=== PATIENT | male | born 1950 | race Caucasian/White ===

== ENCOUNTER 2016-07-09 07:30 | Inpatient (IN) | payer BC, MEDICARE ==
--- NOTE | 2016-07-02 14:00 | NUR ---
JOINT REPLACEMENT PREOP CLASS PATIENT ATTENDED JOINT REPLACEMENT PREOP CLASS. CASE MANAGEMENT CONTACT INFORMATION PROVIDED. EDUCATION WAS PROVIDED REGARDING WHAT TO EXPECT BEFORE, DURING AND AFTER SURGERY. INCLUDING: OVERVIEW OF ANATOMY AND PHYSIOLOGY HOSPITAL TREATMENT SCHEDULE THERAPY DEMONSTRATION CASE MANAGEMENT RESPONSIBILITIES DISCHARGE PLANNING EQUIPMENT NEEDS JOINT REPLACEMENT WORKBOOK ANTI-COAGULATION SURGERY STRONG NUTRITIONAL PROTOCOL DISCHARGE INSTRUCTIONS [facility] PATIENT PORTAL, WITH INSTRUCTIONS CJR AND PREOP SURVERY PREOP BATHING- CHG GIVEN ALL PATIENT'S QUESTIONS ANSWERED TO THEIR SATISFACTION. PATIENTS AND COACHES ENCOURAGED TO CALL WITH ANY ADDITIONAL QUESTIONS OR CONCERNS. CM FOLLOWING FOR TRANSITIONAL CARE PLANNING NEEDS DURING HOSPITALIZATION.
--- NOTE | 2016-07-08 09:00 | NUR ---
Cancel surgery per Dr Yao. Ebony French, manager critical care unit at [facility] notified by phone to please relay the message to patient and his physician. Addendum: 07/08/16 at 1537 by MIRA DUARTE RN Dr Yao did speak with Cain Duong APRN and they both agreed it would be best to have patient in a 2-3 week addictions rehab program before proceeding with surgery. Dr Yao wishes to see patient in his office again. Ernestina and Adoption Counselor Manju were notified of Dr Yao's recommendations and Manju will notify the patient. Addendum: 07/08/16 at 1543 by [address]IR[address] DU[address] RN [address] Manzo at is his physician Cristóbal Nunes, social work specialist
[~2016-07-09] VITALS: Ht 174 cm; Wt 100.1 kg
[~2016-07-09 07:30] MED LIST: ALLO100T PO; AMLO10TA2 PO; FINA5TAB42 PO; HYDR-4246 PO; LISI10TA7 PO; NAPR-1119 PO; OMEP20CA10 PO; SERT-77 PO; TERA5CAP4 PO; ZIPR40CA27 PO
[2016-07-31] MEDS ORDERED: BENZ1TAB7 PO (12:06)
[2016-07-31] MEDS ORDERED: MULT-933 PO (12:06)
[2016-07-31] MEDS ORDERED: THIA100T8 PO (12:06)
[2016-07-31] MEDS ORDERED: CYAN10009 PO (12:06)
[2016-07-31] MEDS ORDERED: DOCU-168 PO (12:06)
[2016-07-31] MEDS ORDERED: SIMV10TA6 PO (12:06)
[2016-07-31] MEDS ORDERED: FOLI1TAB15 PO (12:06)
[2016-07-31] MEDS ORDERED: TUMS PO (12:06)
[2016-07-31] MEDS ORDERED: POTA10CA37 PO (12:06)
--- NOTE | 2016-07-31 12:06 | NUR ---
Preop visit with patient and his . Reviewed medications and updated, patient is now out of addictions treatment center and back home. Preop and DOs instructions reviewed verbally and they both expressed good understanding.
--- NOTE | 2016-08-02 13:08 | NUR ---
Abnormal labs Most recent labs from ER visit dated 07-04-[address] Yao, will have patient come in 08-03-16 for repeat labs per Dr Yao request due to elevated WBC, and slightly low K+. Patient notified and is in agreement. Req faxed to [facility] lab.
[2016-08-07] MEDS ORDERED: ASPI-557 PO (09:47)
[2016-08-08] VITALS (22 sets, daily range): BP systolic 113–145; BP diastolic 53–91; PULSE 61–112; RESP 12–27; TEMP 96.5–99.1; O2SAT 93–100; Ht 174 cm; Wt 100.1 kg
[2016-08-08] MEDS ORDERED: METOCLOPRAMIDE 10mg/2ml INJECTION IV ONE (06:00)
[2016-08-08] MEDS ORDERED: LIDOCAINE 1% (10mg/ml) 2ml SDV SQ ONE (06:00)
[2016-08-08] MEDS ORDERED: CEFAZOLIN 2 GM VIAL IV ONE (06:00)
[2016-08-08] MEDS ORDERED: CELECOXIB 200 MG CAPSULE PO ONE (06:00)
[2016-08-08] MEDS ORDERED: FAMOTIDINE 20mg IVPB 50 ML IV ONE (06:00)
[2016-08-08] MEDS ORDERED: DEXAMETHASONE 4mg/ml - 1ml INJECTION IV ONE (07:00)
[2016-08-08] MEDS ORDERED: NOZIN NASAL SWAB NS ONE ×2 (07:00→14:30)
[2016-08-08] MEDS ORDERED: ONDANSETRON 4mg/2ml INJECTION IV ONE (07:00)
[2016-08-08] MEDS ORDERED: LR 1,000 ML IV SCH (07:00)
[2016-08-08] MEDS ORDERED: ACETAMINOPHEN 500 MG TABLET PO ONE (07:00)
[2016-08-08] MEDS ORDERED: EPINEPHRINE 0.25 MG, BUPIVACAINE 0.25% 75 MG, MORPHINE SULFATE 15 MG, KETOROLAC 60 MG i... INJ ONE ×5 (08:00)
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
--- OUTSIDE RECORDS SUMMARY | 2016-08-08 09:35 | XMS REPORT | Continuity of Care Document ---
Author Author [facility] Organization [facility] Address Unknown Phone Unavailable Support Name Relationship Address Phone BLANE LEIGH MD Caregiver [address] [place] [address] Unavailable JP RAMOS MD Caregiver [address] [place] [address] Unavailable LALI MORA Next Of Kin [address] [place] [address] Insurance Providers Guarantor Rogelio Mora Address [address] [place] [address] Email [email or web address] Payer [employer] Policy Number [id number] Subscriber's Name Lali Mora Relationship 01 Spouse Group Number [id number] Payer Medicare Policy Number [id number] Subscriber's Name Rogelio Mora Relationship 18 Self Chief Complaint and Reason for Visit Chief Complaint Suicide Ideation/Attempt Reason for Visit Suicide attempt by substance overdose Bipolar disorder Problems Active Problems Medical Problem Onset Date Status BPH (benign prostatic hyperplasia) Unknown Chronic Bipolar disorder Unknown Chronic Chronic GERD Unknown Chronic Degenerative arthritis of right knee Unknown Depression Unknown Chronic Gout Unknown Chronic HTN (hypertension) Unknown Chronic Hypercholesteremia Unknown Chronic MIGUEL (obstructive sleep apnea) Unknown Obesity (BMI 30-39.9) Unknown Osteoarthritis Unknown Chronic Surgical Problem Onset Date Status Hx of total ankle replacement Unknown Chronic Past Problems Medical Problem Onset Date Ankle arthritis Unknown Strain of right iliopsoas muscle Unknown Strain of right iliopsoas muscle Unknown Suicide attempt by substance overdose Unknown Toxic encephalopathy Unknown UTI (urinary tract infection) Unknown Urinary retention Unknown Medications Current Home Medications Medication Dose Units Route Directions Days Qty Instructions Start Date Allopurinol 100 Mg Tablet 1 Tab Oral Twice A Day 02/28/15 Amlodipine Besylate 10 Mg Tablet 10 Mg Oral Daily 02/28/15 Aspirin 325 Mg Tablet 650 Mg Oral Every 4 Hours Prn as needed for Pain 07/02/16 Bupropion Hcl (Wellbutrin Sr) 150 Mg Tablet 1 Tab Oral Daily 11/11 Finasteride 5 Mg Tablet 1 Tab Oral Bedtime 02/28/15 Hydrocodone/Acetaminophen ([place] 5-325 Tablet) 1 Each Tablet 1 Tab Oral Bedtime as needed for Pain 02/28/15 Lisinopril 10 Mg Tablet 10 Mg Oral Daily 05/25/14 Naproxen Sodium (Naproxen 220MG) 220 Mg Tablet 4 Tab Oral Twice Daily With Meals as needed for Pain 07/02/16 Omeprazole 20 Mg Capsule.dr 20 Mg Oral Before Breakfast Take 1 capsule, by mouth, one time a day (before breakfast). 02/28/15 Sertraline Hcl (Zoloft) 100 Mg Tablet 1 Tab Oral Twice A Day 02/04 Simvastatin 20 Mg Tablet 20 Mg Oral Bedtime Take 1 tablet, by mouth , 1 time a day (at BEDTIME). 02/28/15 Terazosin Hcl 5 Mg Capsule 15 Mg Oral Bedtime Take 3 (5 mg) capsules , by mouth, one time a day at BEDTIME. 02/28/15 Ziprasidone Hcl 40 Mg Capsule 40 Mg Oral Breakfast TAKE 1 CAPSULE BY MOUTH WITH BREAKFAST 02/28/15 Ziprasidone Hcl 40 Mg Capsule 80 Mg Oral Supper TAKE 2 CAPSULES (80 MG) WITH EVENING MEAL 02/28/15 Past Home Medications Medication Directions Ordered Status Meloxicam 15 Mg Tablet, 15 Mg Oral Daily 02/28/15 Discontinued Naproxen Sodium 220 Mg Capsule, 880 Mg Oral Twice Daily With Meals 02/28/15 Discontinued Tramadol Hcl 50 Mg Tablet, 50 Mg Oral Every 6 Hours as needed for Pain Discontinued Social History Social History Problem Response Recorded Date/Time Onset Date Status Hx Substance Use No 07/04/2016 8:53am Not Applicable Not Applicable Hx Alcohol Use Y DAILY ALCOHOL 07/04/2016 8:53am Not Applicable Not Applicable Has the pt used tobacco in the last 12 months No 07/02/2016 2:41pm Not Applicable Not Applicable Tobacco Usage none 03/04/2015 12:24pm Not Applicable Not Applicable Query Response Start Date Stop Date Smoking Status Never smoker Hospital Discharge Instructions No hospital discharge instructions. Plan of Care Discharge Date 07/04/16 2:20pm Disposition 65 TO [facility] Condition at Discharge Improved Prescriptions See Medication Section Referrals JP RAMOS MD Address: [address] [place] [address] [place] [phone] Functional Status No functional status results. Allergies, Adverse Reactions, Alerts Allergen Type Severity Reaction Status Last Updated No Known Drug Allergies Allergy Unknown Active 05/25/14 Immunizations Query Response on File Recorded Date/Time Hx Influenza Vaccination Y 07/02/16 2:41pm Hx Pneumococcal Vaccination Y 07/02/16 2:41pm Hx Tetanus, Diptheria, Pertussis No 05/25/14 2:05am Hx Influenza Vaccination Y 07/02/16 2:41pm Hx Tetanus, Diptheria, Pertussis No 05/25/14 2:05am Influenza Vaccine Hx Feb, 07/04/16 8:53am Vital Signs Acute Vital Signs Vital Response Date/Time Temperature (Fahrenheit) 97.6 deg F (96.8 - 99.1) 07/04/2016 2:20pm Temperature (Calculated Celsius) 36.85765 degrees C (36.0 - 37.3) 07/04/2016 2:20pm Pulse Rate (adult) 79 bpm (60 - 100) 07/04/2016 2:20pm Respiratory Rate 21 breaths/min (10 - 20) 07/04/2016 2:20pm O2 Sat by Pulse Oximetry 98 % (90 - 100) 07/04/2016 2:20pm Blood Pressure 151/72 mm Hg 07/04/2016 2:20pm Height (Feet) 5 feet 07/04/2016 8:37am Height (Inches) 9.00 inches 07/04/2016 8:37am Weight (Kilograms) 95.700 kg 07/04/2016 8:37am Body Mass Index (BMI) 31.0 07/04/2016 8:37am Results Laboratory Results Test Name Result Units Flags Reference Collection Date/Time Result Date/ Time Comments White Blood Count 15.1 T/MM3 H 4.5-11.0 07/04/2016 9:18am 07/04/2016 9: 31am Red Blood Count 3.92 M/MM3 L 4.50-5.90 07/04/2016 9:18am 07/04/2016 9: 31am Hemoglobin 12.2 GM/DL L 13.5-17.5 07/04/2016 9:18am 07/04/2016 9:31am Hematocrit 35.5 % L 41-53 07/04/2016 9:18am 07/04/2016 9:31am Mean Corpuscular Volume 90.6 UM3 80-100 07/04/2016 9:18am 07/04/2016 9: 31am Mean Corpuscular Hemoglobin 31.1 UUG 26-34 07/04/2016 9:18am 2016 9:31am Mean Corpuscular Hemoglobin Concent 34.4 GM/DL 31-37 07/04/2016 9:1807/04/2016 9:31am RDW Standard Deviation 41.6 FL 36.9-50.2 07/04/2016 9:1807/04/2016 9 :31am Platelet Count 270 T/MM3 130-400 07/04/2016 9:1807/04/2016 9:31am Mean Platelet Volume 9.6 UM3 9.4-12.4 07/04/2016 9:18am 07/04/2016 9: 31am Neutrophils % (Manual) 92.0 % H 33-66 07/04/2016 9:18am 07/04/2016 9: 47am Lymphocytes % (Manual) 4.0 % L 23-45 07/04/2016 9:18am 07/04/2016 9: 47am Monocytes % (Manual) 4.0 % 0-9.0 07/04/2016 9:18am 07/04/2016 9:47am Absolute Neutrophils (Manual) 13.9 T/MM3 H 1.8-7.7 07/04/2016 9:18am 12/2016 9:47am Lymphocytes # (Manual) 0.6 T/MM3 L 1-4.8 07/04/2016 9:18am 07/04/2016 9: 47am Monocytes # (Manual) 0.6 T/MM3 0-0.8 07/04/2016 9:18am 07/04/2016 9: 47am Red Cell Morphology Comment NORMAL 07/04/2016 9:18am 07/04/2016 9: 47am Prothromb Time International Ratio 1.12 H 0.76-1.04 07/04/2016 9:18am 07/04/2016 9:33am THERAPUTIC RANGE=2.00-3.00 FOR ANTI-THROMBOSIS THERAPUTIC RANGE=2.50-3.50 FOR IMPLANTED VALVE Icterus Index < 2 0-7 07/04/2016 9:1807/04/2016 9:40am Chemistry Specimen Hemolysis < 15 0-25 07/04/2016 9:1807/04/2016 9 :40am 0-25: Specimen Exhibited No Hemolysis. Turbidity < 20 0-20 07/04/2016 9:1807/04/2016 9:40am Sodium Level 136 MEQ/L 134-144 07/04/2016 9:1807/04/2016 9:40am Potassium Level 3.3 MEQ/L L 3.6-5 07/04/2016 9:1807/04/2016 9:40am Chloride Level 99 MEQ/L 98-107 07/04/2016 9:1807/04/2016 9:40am Carbon Dioxide Level 22 MEQ/L 22-30 07/04/2016 9:1807/04/2016 9: 40am Anion Gap 15 MEQ/L 5-15 07/04/2016 9:18am 07/04/2016 9:40am Blood Urea Nitrogen 23.0 MG/DL H 9-20 07/04/2016 9:1807/04/2016 9: 40am Creatinine 1.0 MG/DL 0.8-1.5 07/04/2016 9:1807/04/2016 9:40am BUN/Creatinine Ratio 23 RATIO 6-26 07/04/2016 9:1807/04/2016 9:40am Glomerular Filtration Rate Calc 75 07/04/2016 9:1807/04/2016 9: 40am Glucose Level 119 MG/DL H 75-110 07/04/2016 9:1807/04/2016 9:40am Calculated Osmolality 267 MOSM/KG 261-280 07/04/2016 9:1807/04/2016 9:40am Calcium Level 10.0 MG/DL 8.4-10.2 07/04/2016 9:1807/04/2016 9:40am Total Bilirubin 1.10 MG/DL 0.20-1.30 07/04/2016 9:1807/04/2016 9: 40am Alkaline Phosphatase 86 U/L 38-126 07/04/2016 9:1807/04/2016 9:40am Total Protein 7.0 G/DL 6.3-8.2 07/04/2016 9:1807/04/2016 9:40am Albumin 4.0 G/DL 3.5-5.0 07/04/2016 9:1807/04/2016 9:40am Globulin 3.0 G/DL 2.4-3.6 07/04/2016 9:1807/04/2016 9:40am Albumin/Globulin Ratio 1.3 RATIO 1.1-2.2 07/04/2016 9:1807/04/2016 9 :40am Aspartate Amino Transf (AST/SGOT) 34 U/L 17-59 07/04/2016 9:182016 9:40am Alanine Aminotransferase (ALT/SGPT) 25 U/L 21-72 07/04/2016 9:18am 12/2016 9:40am Troponin I < 0.012 ng/ml 0-0.12 07/04/2016 9:1807/04/2016 9:50am Troponin values with a difference of 55% increase from orginal troponin value represent a true biological DELTA value. (%increase Calc=Orginal Troponin value, divided by subsequent Troponin value, multiplied by 100) Acetaminophen Level < 10 UG/ML L 10-30 07/04/2016 9:07/04/2016 9: 40am TOXIC <4 HR POST INGESTION: >150 MG/L; TOXIC <12 HR POST INGESTION: >50 MG/L Salicylates Level < 1.0 MG/DL L 2-20 07/04/2016 9:1807/04/2016 9: 40am Alcohol, Quantitative <10 MG/DL <10 07/04/2016 9:1807/04/2016 9: 40am [place] Level < 0.2 MMOL/L L 0.6-1.2 07/04/2016 9:1807/04/2016 9: 35am Urine Collection Type VOIDED-NOT CC-MIDSTR 07/04/2016 10:5307/04 11:23am Urine Color YELLOW YELLOW 07/04/2016 10:5307/04/2016 11:23am Urine Turbidity CLEAR CLEAR 07/04/2016 10:53am 07/04/2016 11:23am Urine Specific [place] 1.010 L 1.015-1.025 07/04/2016 10:53am 2016 11:23am Urine pH 6.5 5.0-8.0 07/04/2016 10:53am 07/04/2016 11:23am Urine Leukocyte Esterase NEGATIVE NEGATIVE 07/04/2016 10:53am 2016 11:23am Urine Nitrite NEGATIVE NEGATIVE 07/04/2016 10:53am 07/04/2016 11: 23am Urine Protein NEGATIVE NEGATIVE 07/04/2016 10:53am 07/04/2016 11: 23am Urine Glucose (UA) NEGATIVE NEGATIVE 07/04/2016 10:53am 07/04/2016 11 :23am Urine Ketones 1+ A NEGATIVE 07/04/2016 10:53am 07/04/2016 11:23am Urine Urobilinogen 1.0 EU/DL NORMAL 07/04/2016 10:53am 07/04/2016 11: 23am Urine Bilirubin NEGATIVE NEGATIVE 07/04/2016 10:53am 07/04/2016 11: 23am Urine Blood NEGATIVE NEGATIVE 07/04/2016 10:53am 07/04/2016 11:23am Urinalysis Comment MICROSCOPIC NOT IND. 07/04/2016 10:53am 2016 11:23am Name: ROGELIO MORA Unit #: [id number] : 1950 Sex: M Admit Date: Loc / Svc: ED Discharge Date: DIAGNOSTIC IMAGING REPORT Report #: [id number] [place], [place] INDICATION: ITS.REASON: overdose PROCEDURE: CHEST 2-VIEWS UPRIGHT (PA \T\ LAT) Encounter: Initial COMPARISON: None FINDINGS: The lungs are clear without evidence of focal abnormal airspace opacity. There is no pleural effusion or pneumothorax. The heart size, mediastinal contours and pulmonary vascularity are within normal limits. Degenerative change in the spine. IMPRESSION: No acute cardiopulmonary disease. . Procedures No known history of procedures. Encounters Encounter Location Arrival/Admit Date Discharge/Depart Date Attending Provider Departed Emergency Room [facility] 07/04/16 8:34am 07/04/16 2: 20pm BLANE LEIGH MD Recent Diagnosis
--- OUTSIDE RECORDS SUMMARY | 2016-08-08 09:35 | XMS REPORT | Continuity of Care Document ---
Author Author [facility] Organization [facility] Address Unknown Phone Unavailable Support Name Relationship Address Phone SHARON SANCHEZ MD Caregiver [address] [place] [address] [place] [address] EMILIA MORAE Next Of Kin [address] [place], [place] [address] Insurance Providers Payer Name Policy Number Subscriber Name Relationship Workers Compensation Rogelio Mora Jessica 18 Self Medicare [id number] Isiah Morabasil Lopez 18 Self Problems Medical Problems Problem Onset Date Status Strain of right iliopsoas muscle Unknown Active Strain of right iliopsoas muscle Unknown Active Medications Medication Dose Route Sig Days/Qty Instructions Order Date Discontinued Date Status Sertraline Hcl DAILY 12/05/09 Active Lisinopril 10 Mg PO DAILY 05/25/14 Active Hydrocodone/Acetaminophen 1-2 Tab PO Every 6 Hours PRN PAIN 30 Qty Active Cyclobenzaprine HCl 1 Tab PO THREE TIMES A DAY PRN PAIN 30 Qty Active Naproxen Sodium 2 Tab PO TWICE DAILY WITH MEALS 5 Days 05/25/14 Active Social History Social History Problem Response Recorded Date/Time Chewing Tobacco Status No 05/25/2014 2:05am Hx Substance Use No 05/25/2014 2:05am Hx Alcohol Use Y several beers a day 05/25/2014 2:05am Query Response Start Date Stop Date Smoking Status Never smoker Hospital Discharge Instructions No hospital discharge instructions. Plan of Care No plan of care. Functional Status Query Response Date Recorded Physical Hygiene Self May 25, 2014 2:05am Disabilities Visual May 25, 2014 2:05am Devices Used Glasses May 25, 2014 2:05am Dressing Self May 25, 2014 2:05am Ambulation Self May 25, 2014 2:05am Diet Self May 25, 2014 2:05am Mental Status Alert Oriented May 25, 2014 2:05am Disabilities Visual May 25, 2014 2:05am Devices Used Glasses May 25, 2014 2:05am Physical Hygiene Self May 25, 2014 2:05am Dressing Self May 25, 2014 2:05am Ambulation Self May 25, 2014 2:05am Diet Self May 25, 2014 2:05am Allergies, Adverse Reactions, Alerts Allergen Type Severity Reaction Status Last Updated No Known Drug Allergies Allergy Unknown Active 05/25/14 Immunizations Name Given Type Hx Influenza Vaccination Y fall Historical Hx Pneumococcal Vaccination No Historical Hx Tetanus, Diptheria, Pertussis No Historical Hx Influenza Vaccination Y fall Historical Hx Tetanus, Diptheria, Pertussis No Historical Vital Signs Acute Vital Signs Vital Response Date/Time Temperature (Fahrenheit) 98.7 deg F (96.8 - 99.1) Temperature (Calculated Celsius) 37.99156 degrees C (36.0 - 37.3) Pulse Rate (adult) 76 bpm (60 - 100) Respiratory Rate 16 breaths/min (10 - 20) O2 Sat by Pulse Oximetry 99 % (90 - 100) Blood Pressure 128/78 mm Hg Height 5 ft 10 in Weight 235 lb Body Mass Index 33.0 kg/m^2 Results No known relevant diagnostic tests, laboratory data and/or discharge summary. Procedures No known history of procedures. Encounters Encounter Location Date/Time Departed Emergency Room [facility] 05/25/14 12:12am Recent Diagnosis
--- NOTE | 2016-08-08 12:25 | ANESPREOP ---
Anesthesia Record Date and Time DATE: 08/08/16 TIME: 12:22 Pre-Op Diagnosis OA Right Knee Proposed Surgical Procedure RT TKA Allergies: Coded Allergies: No Known Drug Allergies (Verified Allergy, Unknown, 08/08/16) Ht/Wt/BMI Height: 5 ' 8.50 " Weight: 97.000 kg BMI: 32.0 kg/m2 Vital Signs Date Time Temp Pulse Resp B/P Pulse Ox O2 Delivery O2 Flow Rate FiO2 08/08/16 09:58 98.1 74 12 145/85 99 Room Air Medications Inpatient Medications Current Medications Medications (Trade) Dose Ordered Sig/Terrance Start Time Stop Time Status Last Admin Dose Admin Lactated Ringer's (Lactated Ringers) 1,000 ml @ 50 mls/hr Q20H 08/08/16 07:00 08/08/16 10:49 50 MLS/HR Allopurinol (Allopurinol) 100 Mg Tablet, 1 TAB PO BID, (Reported) Last Taken: on 08/08/16 0830 Amlodipine Besylate (Amlodipine Besylate) 10 Mg Tablet, 10 MG PO DAILY, (Reported) Last Taken: on 08/07/162029 Benztropine Mesylate (Benztropine Mesylate) 1 Mg Tablet, 1 TAB PO BID PRN for EXTRAPYRAMIDAL SYMPTOMS, (Reported) Last Taken: on 08/01/16 Cyanocobalamin (Vitamin B-12) (Vitamin B-12) 1,000 Mcg Tablet, 1 TAB PO DAILY, (Reported) Last Taken: on 08/01/16 Docusate Sodium (Colace) 100 Mg Capsule, 1 CAP PO BID, (Reported) Last Taken: on 08/01/16 Finasteride (Finasteride) 5 Mg Tablet, 1 TAB PO HS, (Reported) Last Taken: on 08/07/162029 Folic Acid (Folic Acid) 1 Mg Tablet, 1 TAB PO DAILY, (Reported) Last Taken: on 08/01/16 Hydrocodone/Acetaminophen ([place] 5-325 Tablet) 1 Each Tablet, 1 TAB PO QID PRN for PAIN, (Reported) Last Taken: on 08/07/162099 Lisinopril (Lisinopril) 10 Mg Tablet, 5 MG PO DAILY, (Reported) Last Taken: on 08/07/16 0900 Multivitamin (Multi-Day Vitamins) 1 Each Tablet , 1 TAB PO DAILY, (Reported) Last Taken: on 08/01/16 Naproxen Sodium (Naproxen 220mg) 220 Mg Tablet, 2 TAB PO BIDWM PRN for PAIN, (Reported) Last Taken: on 07/28/16 Omeprazole (Omeprazole) 20 Mg Capsule.dr, 20 MG PO ACB, (Reported) Take 1 capsule, by mouth, one time a day (before breakfast). Last Taken: on 08/08/16 0800 Potassium Chloride (Potassium Chloride) 10 Meq Capsule.er, 10 MEQ PO WB, (Reported) Take 1 capsule, by mouth, daily with breakfast Last Taken: on 08/07/16 0900 Sertraline Hcl (Zoloft) 100 Mg Tablet, 2 TAB PO DAILY, (Reported) Last Taken: on 08/07/16 0900 Simvastatin (Simvastatin) 10 Mg Tablet, 10 MG PO HS, (Reported) Take 1 tablet, by mouth, 1 time a day (at BEDTIME). Last Taken: on 08/07/16 0900 Terazosin HCl (Terazosin HCl) 5 Mg Capsule, 15 MG PO HS, (Reported) Take 3 (5 mg) capsules, by mouth, one time a day at BEDTIME. Last Taken: on 08/07/16 0900 Thiamine HCl (Vitamin B-1) 100 Mg Tablet, 1 TAB PO DAILY, (Reported) Last Taken: on 08/01/16 Ziprasidone HCl (Ziprasidone HCl) 40 Mg Capsule, 40 MG PO BREAKFAST, (Reported) TAKE 1 CAPSULE BY MOUTH WITH BREAKFAST Last Taken: on 08/07/16 0900 Ziprasidone HCl (Ziprasidone HCl) 40 Mg Capsule , 80 MG PO SUPPER, (Reported) TAKE 2 CAPSULES (80 MG) WITH EVENING MEAL Last Taken: on 08/06/16 1700 [Tums] , 1,000 MG PO QID PRN for ACID REFLUX, (Reported) Last Taken: on 07/25/16 Currently on Beta Nuno: No Medical/Surgical History Anesthesia PMH: Reports: *Hypertension, Arthritis (KNEES, HIPS, HANDS), Reflux , Sleep Apnea (not used CPAP for 4 years), Denies: *Angina, *Diabetes, *ME, Anesthesia Reactions (NO AIRWAY ISSUES KNOWN), Asthma, Blood Transfusion Reac, CHF, COPD, CVA/Stroke/TIA, Cancer, Clotting Problems, Glaucoma, Hepatitis, Hiatal Hernia, Malignant Hyperthermia, Pacemaker, Pneumonia, Seizures, Tuberculosis Smoking Status: Never smoker Use Chewing Tobacco?: No Second Hand Exposure: No Substance Use Type: does not use Alcohol Intake: none Last Drink: hours (ago) Past Surgical History Orthopedic Surgeries: Yes - RT TOTAL ANKLE ARTHROPLASTY W/ PERC ACHILLES LENGTHENING Abdominal Surgeries: No Genitourinary Surgeries: Yes - COLONOSCOPY, UPPER GI Cardiac Surgeries: No Endocrine Surgeries: No Reproductive Surgeries: Yes - VASECTOMY Neurological Surgeries: No Ear Surgeries: No Nose Surgeries: No Throat Surgeries: Yes - TONSILLECTOMY Other Surgeries: Yes - COLONOSCOPY, EGD Anesthesia Adverse Reactions: FOUND none Hx of Motion Sickness: No Pertinent Findings EKG Rhythm: Sinus Rhythm EKG Ectopy: PVC Physical Exam Respiratory: Bilat breath sounds equal, Lungs clear Cardiovascular: FOUND Regular rate, rhythm, FOUND No murmur Airway Assessment Mallampati Score: I TMD: 3 Fingerbreadths Neck Extension: Good Overall Assessment: No Airway Concerns ASA: 2 Plan Regional: Spinal Peripheral Nerve Block: Saphenous - RT Discussion Discussed risks/options/alternatives of anesthesia and questions answered. Patient consents. Nursing pain assessment noted. Present: Spouse Attestation Statement Prior to the delivery of any anesthetic medication, I examined the patient, developed the plan, obtained the patient's consent and discussed the risk and benefits of the procedure with the patient/guardian. LILIA VINES CRNA Aug 08, 2016 12:25
[2016-08-08] MEDS ORDERED: MIDAZOLAM 2mg/2ml INJECTION ONE (12:38)
[2016-08-08] MEDS ORDERED: PROPOFOL 500mg 50 ML IV ONE ×2 (12:40→13:28)
[2016-08-08] MEDS ORDERED: VANCOMYCIN 1 GRAM INJECTION ONE (13:16)
[2016-08-08] MEDS ORDERED: PROPOFOL 200mg 20 ML IV ONE (13:28)
[2016-08-08] MEDS ORDERED: TRANEXAMIC ACID 1,000 MG in NORMAL SALINE 100 ML IV ONE ×2 (13:45→14:45)
--- NOTE | 2016-08-08 14:06 | PDOPERATE ---
Operative Report Date of Operation 08/08/16 Side: Right Preoperative Diagnosis: knee primary DJD Postoperative Diagnosis Same as preoperative diagnosis. Operation/Procedure: total knee arthroplasty (right) Surgeon Dorys Yao MD Metal Control Worker LEONOR Cruz Complications None. Regional Block: Spinal Estimated Blood Loss See Anesthesia Record. Fluids Please See Anesthesia Record. Description of Operation Mr. Mora and his right knee were identified and marked in the the preoperative holding area. He was then brought back to the operating suite and proper anesthesia was administered. He was then positioned supine on the operating table. The right lower extremity was then prepped and draped in my normal sterile fashion. Timeout was performed with all operating room personnel. The leg was exsanguinated and tourniquet inflated 250 mmHg. A standard anterior incision followed by a medial parapatellar approach was utilized. He had severe chondral as well as bone loss lateral femoral condyle and lateral tibial plateau. The remainder of his knee was relatively spared. A distal femoral cut was made in 5 of valgus using intramedullary guide. The femur was sized at a 6 and rotation set using the epicondylar axis. Distal femoral cuts were performed. A proximal tibial cut was made using extramedullary guide. Remaining osteophytes and meniscus were removed. Gaps were checked and they were well balanced and rectangular. Trial components were placed with a 9 mm spacer. This allowed for full range of motion and the patella tracked well. The knee was stable throughout range of motion. The patella was resurfaced with the knee in extension to a size 32. The tibia rotation was then marked and the tibia stamped at the proper rotation at a size 6. The bone was prepared for cementing and all components cemented into place and allowed to cure in extension. Betadine solution was used for 3 minutes during the curing period and then fully irrigated out with 1 L of normal saline. The tourniquet was deflated and hemostasis obtained with electrocautery. After the cement had cured the knee was taken through range of motion check for balance and stability which were good. Vancomycin powder was placed into the wound. The arthrotomy was closed with #1 Vicryl. The remainder of the wound was then closed by my chef's assistant utilizing 2-0 vycral in the subcutaneous tissue. 4-0 monocryl was used in the subcuticular layer followed by dermabond and a sterile dressing. After closure the patient will be transferred to the recovery room under the care of anesthesia. MARLEN YAO MD Aug 08, 2016 14:06
[2016-08-08] MEDS ORDERED: ONDANSETRON 4mg/2ml INJECTION IV PRN (14:30)
[2016-08-08] MEDS ORDERED: PRN ORDERS MC (14:30)
[2016-08-08] MEDS ORDERED: LORAZEPAM 1 MG TABLET PO PRN (14:30)
[2016-08-08] MEDS ORDERED: SENNOSIDES 8.6 MG TABLET PO PRN (14:30)
[2016-08-08] MEDS ORDERED: METOCLOPRAMIDE 10mg/2ml INJECTION IV PRN (14:30)
[2016-08-08] MEDS ORDERED: DiphenhydrAMINE 50 MG/ML INJECTION IV PRN (14:30)
[2016-08-08] MEDS ORDERED: DiphenhydrAMINE 25 MG CAPSULE PO PRN (14:30)
[2016-08-08] MEDS ORDERED: ROPIVACAINE 0.5% (5mg/ml) 30ml INJ ONE (14:36)
[2016-08-08] MEDS ORDERED: CALCIUM CARBONATE 500mg Chewable TAB PO PRN (15:15)
--- NOTE | 2016-08-08 15:15 | ANESPD ---
Peripheral Nerve Blockade Physician: Kang Yao MD Date: 08/08/16 Surgical Procedure: Right total knee Discussion Discussed risks/options/alternatives of anesthesia and questions answered. Patient consents. Nursing pain assessment noted. Block Start: 14:45 Block Stop: 14:46 Block Employed: Adductor Canal, Single Injection Indication: post-operative pain Approach: right side confirmed Position: supine Patient: Consent Monitors: EKG, SpO2, NIBP IV Sedation: No Sedation: Awake Initial Vital Signs First Documented Vital Signs Date Time Temp Pulse Resp B/P Pulse Ox O2 Delivery O2 Flow Rate FiO2 08/08/16 09:58 98.1 74 12 145/85 99 Room Air 08/08/16 14:38 6.00 Post Vital Signs Vital Signs Date Time Temp Pulse Resp B/P Pulse Ox O2 Delivery O2 Flow Rate FiO2 08/08/16 14:38 99.1 112 16 144/88 100 Mask 6.00 Initial Pain Score: 0 Post Block Score: 0 Prep: chlorhexadine/ETOH Ultrasound Used?: Yes (see ultrasound image in EMR) Injectate Ropivacaine (%): 0.5 Ropivacaine (mL): 20 Was Epi 1:200,000 Used?: No Injection Injection made incrementally with constant monitoring and aspiration every 5ml. ADINA PEREZ SOFTWARE REQUIREMENTS ENGINEER Aug 08, 2016 15:15
--- NOTE | 2016-08-08 15:16 | ANESPO ---
Post-Op Note Date 08/08/16 Time: 15:15 Status Pt Participated in Evaluation: Pt participated in person Vital Signs Date Time Temp Pulse Resp B/P Pulse Ox O2 Delivery O2 Flow Rate FiO2 08/08/16 14:38 99.1 112 16 144/88 100 Mask 6.00 Respiratory Function: Airway patent Cardiovascular Function: Regular pulse Telemetry Pattern: SR Mental Status: Alert/oriented Pain Level Intensity: 0 Unable to Assess Pain Due To: Medicated/Sleeping Hydration: IV infusing Complications during Recovery None apparent Follow-Up Instructions Instructions Per Surgeon ADINA PEREZ CRNA Aug 08, 2016 15:16
--- NOTE | 2016-08-08 15:38 | DI ---
Indication: ITS.REASON: POSTOP right knee replacement PROCEDURE: KNEE RIGHT 2 VIEW: Encounter: Initial Comparison: None Findings: Postoperative changes of right total knee replacement are seen. There is expected postoperative subcutaneous gas. No evidence of hardware failure or acute fracture. No retained radiopaque surgical instruments or sponges. Overlying material causing artifact. Impression: New right total knee prosthesis without evidence of immediate complication. .
[2016-08-08] MEDS: NORMAL SALINE 1,000 ML IV SCH (15:39)
--- NOTE | 2016-08-08 15:45 | NUR ---
ARRIVAL PT TO ROOM 121. PT TRANSFERRED FROM CART TO BED WITH ASSIST OF 2 WITH SLIDE BOARD. INITIAL ASSESSMENT DONE. VS STABLE. PT ON RA, DENIES SOA. MEPILEX C/D/I. PT DENIES PAIN OR NAUSEA. BED ALARM ON. CALL LIGHT WITHIN REACH. WILL CONTINUE TO MONITOR.
[2016-08-08] MEDS ORDERED: ZIPRASIDONE 40 MG CAPSULE PO SCH (17:30)
--- NOTE | 2016-08-08 19:15 | NUR ---
STATUS PT A/O X3. UP WITH ASSIST OF ONE WITH WALKER AND GAIT BELT. PT COMPLAINS OF PAIN 10/05. PRN NORCO GIVEN. DENIES NAUSEA OR SOA. TOLERATING REGULAR DIET. NO VOID POST OP, PT DENIES NEEDING TO GO WHEN ASKED. PT UP IN CHAIR WITH ALARM .CALL LIGHT WITHIN REACH. WILL CONTINUE TO MONITOR.
[2016-08-08] MEDS: ASPIRIN *EC* 325mg TABLET PO SCH (21:11)
[2016-08-08] MEDS: CEFAZOLIN 2 G in NORMAL SALINE 100 ML IV SCH (21:11)
[2016-08-08] MEDS: ALLOPURINOL 100 MG TABLET PO SCH (21:12)
[2016-08-08] MEDS: NOZIN NASAL SWAB NS SCH (21:16)
[2016-08-08] MEDS: NAPROXEN 220 MG TABLET PO PRN (21:17)
--- NOTE | 2016-08-08 21:52 | NUR ---
POST OP VOID PATIENT DID NOT HAVE A URINAL IN BATHROOM. PATIENT VOIDED A LARGE AMOUNT INTO TOILET. URINAL HAS BEEN PLACED FOR FUTURE USE.
[2016-08-08] MEDS ORDERED: SENNOSIDES 8.6 MG TABLET PO SCH (22:00)
[2016-08-08] MEDS ORDERED: SIMVASTATIN 10 MG TABLET PO SCH (22:00)
[2016-08-08] MEDS ORDERED: FINASTERIDE 5 MG TABLET PO SCH (22:00)
[2016-08-08] MEDS ORDERED: TERAZOSIN 5 MG CAPSULE PO SCH (22:00)
[2016-08-09] VITALS (7 sets, daily range): BP systolic 139–156; BP diastolic 72–85; PULSE 72–84; RESP 14–18; TEMP 96.4–97.7; O2SAT 96–100
[2016-08-09 05:06] LABS: HCT - HEMATOCRIT 32.9 % (41-53); HGB - HEMOGLOBIN 11.2 GM/DL (13.5-17.5); MEAN CORPUSCULAR HGB 30.6 UUG (26-34); MEAN CORPUSCULAR VOLUME 89.9 UM3 (80-100); MEAN PLATELET VOLUME 9.6 UM3 (9.4-12.4); RED BLOOD COUNT 3.66 M/MM3 (4.50-5.90); WBC - WHITE BLOOD COUNT 11.6 T/MM3 (4.5-11.0)
--- NOTE | 2016-08-09 05:06 | NUR ---
SHIFT SUMMARY PATIENT IS ALERT AND ORIENTED X3 THIS SHIFT. VITAL SIGNS ARE STABLE ON ROOM AIR. PATIENT HAS REPORTED LITTLE PAIN THIS SHIFT WHICH HAS BEEN MANAGED WITH PO PAIN MEDICATIONS. PATIENT AMBULATES WELL WITH STAND BY, GAIT BELT, AND WALKER. NO NAUSEA OR VOMITING REPORTED. WILL CONTINUE TO MONITOR.
[2016-08-09 05:20] LABS: ANION GAP 12 MEQ/L (5-15); BUN/CREATININE RATIO 15 RATIO (6-26); CALCIUM 9.5 MG/DL (8.4-10.2); CHLORIDE 105 MEQ/L (98-107); CO2 - CARBON DIOXIDE 22 MEQ/L (22-30); CREATININE 0.8 MG/DL (0.8-1.5); GLOMERULAR FILTRATION RATE 97; GLUCOSE 131 MG/DL (75-110); SODIUM 139 MEQ/L (134-144)
[2016-08-09] MEDS: CEFAZOLIN 2 G in NORMAL SALINE 100 ML IV SCH (05:53)
[2016-08-09] MEDS: NOZIN NASAL SWAB NS SCH ×2 (05:54→13:23)
[2016-08-09] MEDS: NORMAL SALINE 1,000 ML IV SCH (05:54)
[2016-08-09] MEDS ORDERED: OMEPRAZOLE 20 MG CAPSULE PO SCH (06:30)
[2016-08-09] MEDS ORDERED: POTASSIUM CL. 10mEq CAP PO SCH (08:00)
[2016-08-09] MEDS ORDERED: ZIPRASIDONE 40 MG CAPSULE PO SCH (08:00)
--- NOTE | 2016-08-09 08:03 | NUR ---
CM CM IN TO VISIT WITH PT. HE IS ALERT AND ORIENTED. HIS IS PRESENT. DC OPTIONS ARE DISCUSSED WITH PT AND . HOME HEALTH THE MENTAL HEALTH OPTION IS DISCUSSED VS. OUTPT PT AND CONTINUING WITH OUTPT THERAPISTS AT [facility]. PT AND FEEL THAT PT IS WELL CONNECTED AT . HE HAS FOLLOW UP APPTS SCHEDULED AND HAS CRISIS PLAN. THEY OPT FOR PT TO RETURN HOME WITH OUTPT PT AT [facility]ENT[facility] SERVICES AT . PT HAS FWW AND CANE. HE IS GIVEN CM CONTACT INFORMATION AND ADVANCED DIRECTIVES PAPERWORK. Addendum: 08/09/16 at 0805 by EUGENE MONZON RN Amended: Links added.
--- NOTE | 2016-08-09 08:07 | PDORTHOPN ---
Subjective Date DATE: 08/09/16 TIME: 08:04 Subjective Mr Mora is resting comfortably in his room. Denies much pain in the knee. No CP, cough or SOA reported. He walked 190 ft yesterday with good tolerance. Objective Vital Signs Vital signs Vital Signs 08/08/16 08/08/16 08/09/16 08/09/16 21:25 21:34 00:27 03:25 Temp 97.5 97.0 97.7 Pulse 80 84 72 Resp 12 14 16 B/P 134/79 139/80 145/77 Pulse Ox 97 98 99 O2 Delivery Room Air Room Air Room Air 08/09/16 08/09/16 04:14 07:48 Pulse 73 Resp 18 B/P 142/85 Pulse Ox 96 97 O2 Delivery Room Air Room Air Height (Feet): 5 Height (Inches): 8.50 Weight (Kilograms): 97.000 General General Appearance: No Acute Distress Respiratory (Brief) Respiratory Brief: FOUND: non-labored Cardiovascular (Brief) Cardiac: FOUND: calf easily compressible, calf soft, nontender, pedal pulses intact Surgical Site Incision: FOUND: Mepilex dressing intact, no drainage Neurologic (Brief) Neurological Brief: FOUND: extremities w/o deficits, neuro intact Psychiatric (Brief) Psychiatric Brief: FOUND: alert, no acute distress Laboratory Laboratory Laboratory Tests 08/09/16 04:16 Laboratory Tests 08/09/16 04:16 Assessment & Plan Problems: (1) Degenerative arthritis of right knee Status: Chronic Qualifiers: Osteoarthritis type: primary Qualified Codes: M17.11 - Unilateral primary osteoarthritis, right knee Assessment & Plan: Aspirin protocol for VTE prophylaxis. SCD's. PT/OT services to improve independent function. Discharge Planning per Case Management. (2) MIGUEL (obstructive sleep apnea) Status: Chronic (3) Bipolar disorder Status: Chronic (4) Depression Status: Chronic Hospital Course Summary Disclaimer The visit summary below is not to be considered part of the above Progress Note. RICHIE GARNICA Aug 09, 2016 08:07
[2016-08-09] MEDS: NAPROXEN 220 MG TABLET PO PRN (08:44)
[2016-08-09] MEDS: ASPIRIN *EC* 325mg TABLET PO SCH (08:45)
[2016-08-09] MEDS: ALLOPURINOL 100 MG TABLET PO SCH (08:46)
--- NOTE | 2016-08-09 08:55 | NUR ---
PAIN CONTROL Patient was given Alleve and two tablets of [place] 7.5/325 for reported discomfort to his operative knee. Pain medications were discussed with him and it was determined that both medications would be useful. Patient is eating at this time.
[2016-08-09] MEDS ORDERED: AMLODIPINE 10 MG TABLET PO SCH (09:00)
[2016-08-09] MEDS ORDERED: SERTRALINE 100 MG TABLET PO SCH (09:00)
[2016-08-09] MEDS ORDERED: LISINOPRIL 5 MG TABLET PO SCH (09:00)
[2016-08-09] MEDS ORDERED: FOLIC ACID 1 MG TABLET PO SCH (09:00)
[2016-08-09] MEDS ORDERED: DOCUSATE SODIUM 100 MG CAPSULE PO SCH (09:00)
[2016-08-09] MEDS ORDERED: POLYETHYL.GLYCOL 3350 PACKET 17gm PO SCH (09:00)
[2016-08-09] MEDS ORDERED: CYANOCOBALAMIN (B-12) 500mcg TABLET PO SCH (09:00)
[2016-08-09] MEDS ORDERED: ASPI-917 PO (11:45)
[2016-08-09] MEDS ORDERED: HYDR-4072 PO (11:45)
[2016-08-09] MEDS ORDERED: POLY17PO6 PO (11:45)
--- NOTE | 2016-08-09 12:09 | DSPDOC ---
General Date Date DATE: 08/09/16 TIME: 12:07 Attending Physician Kang Yao MD Admitting Physician Kang Yao MD Consulting Physician Admitting Diagnosis PRIMARY DEGENERATIVE JOINT DISEASE RIGHT KNEE Discharge Diagnosis Primary DJD right knee Procedures Right total knee arthroplasty History of Present Illness HPI Elements This patient was admitted for elective surgical tx of end stage degenerative joint disease that failed to respond to conservative treatment. Further details of this is found in the admission H&P. Hospital Course After appropriate preoperative clearance and signing of operative consent, the patient was given IV antibiotics, according to orthopedic protocol. The patient was taken to the operating room and underwent elective right total knee arthroplasty. Following surgery, antibiotics were discontinued less than 24 hours according to joint protocol. Aspirin was initiated and SCDs added for DVT prevention. The dressing was clean, dry, and intact. Pain control was obtained via multimodal approach. Bowel motivation addressed with scheduled and PRN medications. Early mobilization was initiated through PT services. Discharge arrangements made by a collaborative effort between the patient and Case Management. Follow-up is scheduled in 2-3 weeks. Discharge instructions given by orthopedic providers and nursing staff at discharge. Discharge condition was good. Problems: (1) Degenerative arthritis of right knee Status: Chronic Assessment & Plan: Aspirin protocol for VTE prophylaxis. SCD's. PT/OT services to improve independent function. Discharge Planning per Case Management. (2) MIGUEL (obstructive sleep apnea) Status: Chronic (3) Bipolar disorder Status: Chronic (4) Depression Status: Chronic Ongoing Care Required?: No Laboratory Laboratory Tests Test 08/09/16 04:16 White Blood Count 11.6T/MM3 Red Blood Count 3.66M/MM3 Hemoglobin 11.2GM/DL Hematocrit 32.9% Mean Corpuscular Volume 89.9UM3 Mean Corpuscular Hemoglobin 30.6UUG Mean Corpuscular Hemoglobin Concent 34.0GM/DL RDW Standard Deviation 39.8FL Platelet Count 242T/MM3 Mean Platelet Volume 9.6UM3 Turbidity < 20 Sodium Level 139MEQ/L Potassium Level 4.0MEQ/L Chloride Level 105MEQ/L Carbon Dioxide Level 22MEQ/L Anion Gap 12MEQ/L Blood Urea Nitrogen 12.0MG/DL Creatinine 0.8MG/DL Glomerular Filtration Rate Calc 97 BUN/Creatinine Ratio 15RATIO Glucose Level 131MG/DL Calculated Osmolality 270MOSM/KG Calcium Level 9.5MG/DL Icterus Index < 2 Chemistry Specimen Hemolysis < 15 Home Meds Active Scripts Polyethylene Glycol 3350 (Miralax) 17 Gm Powd.pack, 17 G PO DAILY Y for CONSTIPATION, #1 BOTTLE Take 17 Grams (1 capful), by mouth, once a day. Prov:RICHIE GARNICA 08/09/16 Hydrocodone/Acetaminophen (Hydrocodon-Acetaminoph 7.5-325) 7.5-325 Tablet, 1-2 TAB PO Q4H Y for PAIN, #50 TAB Prov:RICHIE GARNICA 08/09/16 Aspirin *EC* (Aspirin EC) 325 Mg Tablet.dr, 325 MG PO BID, #84 TAB This medication is for blood clot prevention and should be taken twice a day for 6 weeks. Prov:RICHIE GARNICA 08/09/16 Reported Medications Cyanocobalamin (Vitamin B-12) (Vitamin B-12) 1,000 Mcg Tablet, 1 TAB PO DAILY, TAB 07/31/16 Thiamine HCl (Vitamin B-1) 100 Mg Tablet, 1 TAB PO DAILY 07/31/16 [Tums] No Conflict Check, 1000 MG PO QID Y for ACID REFLUX 07/31/16 Simvastatin (Simvastatin) 10 Mg Tablet, 10 MG PO HS, TAB Take 1 tablet, by mouth, 1 time a day (at BEDTIME). 07/31/16 Potassium Chloride (Potassium Chloride) 10 Meq Capsule.er, 10 MEQ PO WB, CAP Take 1 capsule, by mouth, daily with breakfast 07/31/16 Multivitamin (Multi-Day Vitamins) 1 Each Tablet, 1 TAB PO DAILY, TAB 07/31/16 Folic Acid (Folic Acid) 1 Mg Tablet, 1 TAB PO DAILY, TAB 07/31/16 Docusate Sodium (Colace) 100 Mg Capsule, 1 CAP PO BID for CONSTIPATION, CAP 07/31/16 Benztropine Mesylate (Benztropine Mesylate) 1 Mg Tablet, 1 TAB PO BID Y for EXTRAPYRAMIDAL SYMPTOMS, TAB 07/31/16 Naproxen Sodium (Naproxen 220mg) 220 Mg Tablet, 2 TAB PO BIDWM Y for PAIN, TAB 07/02/16 Ziprasidone HCl (Ziprasidone HCl) 40 Mg Capsule, 80 MG PO SUPPER, CAP TAKE 2 CAPSULES (80 MG) WITH EVENING MEAL 02/28/15 Ziprasidone HCl (Ziprasidone HCl) 40 Mg Capsule, 40 MG PO BREAKFAST, CAP TAKE 1 CAPSULE BY MOUTH WITH BREAKFAST 02/28/15 Terazosin HCl (Terazosin HCl) 5 Mg Capsule, 15 MG PO HS, CAP Take 3 (5 mg) capsules, by mouth, one time a day at BEDTIME. 02/28/15 Omeprazole (Omeprazole) 20 Mg Capsule.dr, 20 MG PO ACB, CAP Take 1 capsule, by mouth, one time a day (before breakfast). 02/28/15 Finasteride (Finasteride) 5 Mg Tablet, 1 TAB PO HS, TAB 02/28/15 Amlodipine Besylate (Amlodipine Besylate) 10 Mg Tablet, 10 MG PO DAILY, TAB 02/28/15 Allopurinol (Allopurinol) 100 Mg Tablet, 1 TAB PO BID, TAB 02/28/15 Lisinopril (Lisinopril) 10 Mg Tablet, 5 MG PO DAILY, TAB 05/25/14 Sertraline Hcl (Zoloft) 100 Mg Tablet, 2 TAB PO DAILY 12/05/09 Discontinued Reported Medications Hydrocodone/Acetaminophen ([place] 5-325 Tablet) 1 Each Tablet, 1 TAB PO QID Y for PAIN, TAB 02/28/15 Discharge Disposition Home with his . Estimated Blood Loss 20.0 RICHIE GARNICA Aug 09, 2016 12:09
--- NOTE | 2016-08-09 13:10 | NUR ---
PAIN [place] two tablets given for moderate operative knee pain. He states that the medications we are giving have been controlling his discomfort relatively well, that the pain is better than it was prior to surgery. Also states that he still has discomfort to the nonoperative knee and will be returning for a replacement of that joint in the next several months. He has been tolerating the therapy and activity well. Ice pack and SCDs have remained in place except when ambulating. Patient has been instructed and reminded about ankle pump exercises and incentive spirometer use.
--- NOTE | 2016-08-09 15:35 | NUR ---
The patient was discharged to home in care of his at 1535 after discharge teaching. Patient teaching was completed throughout shift and at discharge. This included but was not limited to: -Importance of continuing to CTDB and do frequent ankle pump exercises. -Rationale for use of and side effects of new medications including Aspirin and [place]. -Home medications. -Prevention of constipation. -How to elevate leg, continue to use ice and do exercises three times a day. Follow up care. Dressing/incision care. Indications for paging the doctor and seek continued care. The discharge packet was thoroughly discussed and patient and verbalized understanding of the contents. Scripts and polar pack were sent. The patient was asked about his emotional state prior to leaving. He reported that he initially had some anxiety about going home, but after experiencing how well things have been going, doing the exercises and working the with the PT photography assistant, he is reassured and feels ready to go home. He offered that he is not having any thoughts of self harm or harm toward others and has resources for when he feels unstable emotionally.
[2016-08-10] MEDS ORDERED: MILK OF MAGNESIA 30 ML SUSP PO SCH (08:00)
[2016-08-10] MEDS ORDERED: BISACODYL 10 MG SUPPOSITORY RECTALLY SCH (20:00)
== END 2016-08-09 15:35 | disposition home or self-care (01) | DRG 470 ==
LOC: SRG 08-08 09:31
PROVIDERS: ADMIT Orthopaedic Surgery; ATTEND Orthopaedic Surgery
PROC: 0SRC0J9 Replacement of Right Knee Joint with Synthetic Substitute, Cemented, Open Approach (ICD-10-PCS; principal; 2016-08-08 13:11)
DX: M17.0 Bilateral primary osteoarthritis of knee (principal); G47.33 Obstructive sleep apnea (adult) (pediatric); F31.9 Bipolar disorder, unspecified; I10 Essential (primary) hypertension; E78.5 Hyperlipidemia, unspecified; N40.0 Benign prostatic hyperplasia without lower urinary tract symptoms
CPT/HCPCS: 36415; 80048; 85027

== ENCOUNTER → 2016-08-03 | Outpatient (CLI) | payer BC, MEDICARE ==
[~2016-08-03] MED LIST changes: +ASPI-557 PO; +BENZ1TAB7 PO; +CYAN10009 PO; +DOCU-168 PO; +FOLI1TAB15 PO; +MULT-933 PO; +POTA10CA37 PO; +SIMV10TA6 PO; +THIA100T8 PO; +TUMS PO
[2016-08-03 10:36] LABS: BASOPHILS % (AUTO) 0.3 % (0-2); EOSINOPHILS # (AUTO) 0.1 T/MM3 (0-0.5); EOSINOPHILS % (AUTO) 1.2 % (0-4); HCT - HEMATOCRIT 37.6 % (41-53); HGB - HEMOGLOBIN 12.8 GM/DL (13.5-17.5); IMMATURE GRANULOCYTE # (AUTO) 0.01 T/MM3 (0.00-0.03); IMMATURE GRANULOCYTE % (AUTO) 0.2 % (0.0-0.5); LYMPHOCYTES # (AUTO) 1.7 T/MM3 (1-4.8); LYMPHOCYTES % (AUTO) 27.5 % (23-45); MEAN CORPUSCULAR HGB 31.1 UUG (26-34); MEAN CORPUSCULAR VOLUME 91.5 UM3 (80-100); MEAN PLATELET VOLUME 9.2 UM3 (9.4-12.4); MONOCYTES # (AUTO) 0.4 T/MM3 (0-0.8); MONOCYTES % (AUTO) 6.3 % (0-9.0); NEUTROPHILS #(AUTO)-ABSOLUTE 3.9 T/MM3 (1.8-7.7); NEUTROPHILS % (AUTO) 64.5 % (33-66); RED BLOOD COUNT 4.11 M/MM3 (4.50-5.90)
[2016-08-03 10:49] LABS: ANION GAP 12 MEQ/L (5-15); BUN/CREATININE RATIO 13 RATIO (6-26); CALCIUM 10.1 MG/DL (8.4-10.2); CHLORIDE 105 MEQ/L (98-107); CO2 - CARBON DIOXIDE 26 MEQ/L (22-30); GLOMERULAR FILTRATION RATE 75; GLUCOSE 164 MG/DL (75-110); POTASSIUM 4.4 MEQ/L (3.6-5); SODIUM 143 MEQ/L (134-144)
== END ==
LOC: LAB 10:14
PROVIDERS: ATTEND Orthopaedic Surgery
DX: Z01.812 Encounter for preprocedural laboratory examination (principal); D72.829 Elevated white blood cell count, unspecified; I10 Essential (primary) hypertension
CPT/HCPCS: 36415; 80048; 85025

== ENCOUNTER 2016-11-26 06:42 | Inpatient (IN) ==
[~2016-11-26 06:42] MED LIST changes: +ACETAMINOPHEN 500 MG TABLET PO ONE; -ALLO100T PO; -AMLO10TA2 PO; -ASPI-557 PO; -BENZ1TAB7 PO; +CEFAZOLIN 1 G INJECTION IVP ONE; -CYAN10009 PO; -DOCU-168 PO; +FAMOTIDINE PB 20 MG/50 ML BAG IV ONE; -FINA5TAB42 PO; -FOLI1TAB15 PO; -HYDR-4246 PO; +LIDOCAINE 1% (10mg/ml) 10mL MDV SQ ONE; -LISI10TA7 PO; +MELOXICAM 15 MG TABLET PO ONE; +METOCLOPRAMIDE 10mg/2ml INJECTION IVP ONE; -MULT-933 PO; -NAPR-1119 PO; +NOZIN NASAL SWAB NAS ONE; -OMEP20CA10 PO; +ONDANSETRON 4 MG/2 ML INJECTION IVP ONE; -POTA10CA37 PO; -SERT-77 PO; -SIMV10TA6 PO; -TERA5CAP4 PO; -THIA100T8 PO; +TRANEXAMIC ACID 1,000 MG in NS 100 ML IV ONE; -TUMS PO; -ZIPR40CA27 PO
[2016-11-26] MEDS ORDERED: TRANEXAMIC ACID 1,000 MG in NS 100 ML IV ONE (07:00)
[2016-11-26 07:02] VITALS: BMI 31.4
[2016-11-26] MEDS: LR 1,000 ML IV SCH ×2 (07:35→09:41)
[2016-11-26] MEDS ORDERED: LIDOCAINE 1% (10mg/ml) 2mL INJ PF SDV ID ONE (07:43)
--- NOTE | 2016-11-26 07:54 | Anesthesia Preoperative Report ---
Anesthesia Preoperative Record - Date and Time Date: 11/26/16 Preoperative Diagnosis: Total Left Knee M17.12 NPO Since Date: 11/25/16 NPO Since Time: 21:00 Allergies/Adverse Reactions: Allergies Allergy/AdvReac Type Severity Reaction Status Date / Time No Known Drug Allergies Allergy Unknown Verified 08/08/16 10:33 - Vital Signs Vital Signs: Temperature 98.5 F 11/26/16 07:01 Pulse Rate 65 11/26/16 07:29 Respiratory Rate 18 11/26/16 07:01 Blood Pressure 143/85 H 11/26/16 07:01 Pulse Oximetry 98 11/26/16 07:01 Oxygen Delivery Method Room Air Height and Weight: Height 1.73 m Weight 93.8 kg Body Mass Index 31.4 - Medications Inpatient Medications: Current Medications Epinephrine HCl 0.25 mg/Bupivacaine HCl 30 ml/Morphine Sulfate 15 mg/Ketorolac Tromethamine 60 mg/Sodium Chloride 65.25 mls @ 1 mls/hr OPSITE INTRAOP ONE PRN Reason: Protocol Stop: 11/29/16 01:14 Lactated Ringer's (Lactated Ringers) 1,000 mls @ 50 mls/hr IV .Q20H SHAYE Last Admin: 11/26/16 07:35 Dose: 50 mls/hr Lidocaine HCl (Xylocaine-Mpf 1% Vial) 2 mg ID O ONE Stop: 11/26/16 07:44 Last Admin: 11/26/16 07:45 Dose: 2 mg Sodium Chloride (Iv Flush) 10 - 80 ml IVF PRN PRN PRN Reason: Fl[place] Home Medications: Home Medications Medication Instructions Recorded Confirmed Type Sertraline HCl [Zoloft] 1 tab PO DAILY #0 12/05/09 11/26/16 History Lisinopril 5 mg PO DAILY #0 tab 05/25/14 11/26/16 History Allopurinol 1 tab PO BID #0 tab 02/28/15 11/26/16 History Amlodipine Besylate 10 mg PO DAILY #0 tab 02/28/15 11/26/16 History Finasteride 1 tab PO HS #0 tab 02/28/15 11/26/16 History Omeprazole 20 mg PO ACB #0 cap 02/28/15 11/26/16 History Terazosin HCl 15 mg PO HS #0 cap 02/28/15 11/26/16 History Ziprasidone HCl 40 mg PO BREAKFAST #0 cap 02/28/15 11/26/16 History Ziprasidone HCl 80 mg PO SUPPER #0 cap 02/28/15 11/26/16 History Naproxen [Aleve] 2 tab PO BIDWM PRN #0 tab 07/02/16 11/25/16 History Benztropine Mesylate 1 tab PO BID PRN #0 tab 07/31/16 11/26/16 History Cyanocobalamin (Vitamin B-12) 1 tab PO DAILY #0 tab 07/31/16 11/26/16 History [Vitamin B-12] Docusate Sodium [Colace] 1 cap PO BID #0 cap 07/31/16 11/26/16 History Folic Acid 1 tab PO DAILY #0 tab 07/31/16 11/26/16 History Multivitamin [Multi-Day Vitamins] 1 tab PO DAILY #0 tab 07/31/16 11/26/16 History Potassium Chloride 10 meq PO WB #0 cap 07/31/16 11/26/16 History Simvastatin 10 mg PO HS #0 tab 07/31/16 11/26/16 History TUMS 1,000 mg PO QID PRN #0 07/31/16 11/26/16 History Thiamine HCl [Vitamin B-1] 1 tab PO DAILY #0 07/31/16 11/26/16 History Aspirin [Aspirin EC] 325 mg PO BID PRN 11/20/16 11/25/16 History Is Patient on Beta Nuno?: No - Medical History Respiratory: Reports: Sleep Apnea (history, doesn't use CPAP. Patient has lost over 50 lbs. ) Cardiovascular: Reports: Hypertension Gastrointestional: Reports: Gastroesophageal Reflux Disease (occasionally) Neuro/Musculoskeletal: Reports: Depression - Surgical History HEENT Surgeries: Reports: Tonsillectomy GI Surgery/Treatments: Reports: Colonoscopy, EGD Musculoskeletal Surgery/Tx: Reports: Orthopedic Surgery (Rt total ankle arthroplasty w/ perc achilles lengthening), Total Knee Replacement (right TKA ) Reproductive Surgery/Treatment: Reports: Vasectomy Anesthesia Reactions: None Hx Family Anesthesia Reaction: No History of Motion Sickness: No - Social History Smoking Status: Never smoker Hx Chewing Tobacco Use: No Second Hand Exposure: No Substance Use Type: does not use Alcohol Intake Frequency: does not drink - Physical Exam Respiratory Exam: Present: lungs clear, bilateral breath sounds equal Cardiovascular Exam: Present: regular rate and rhythm - Airway Assessment Mallampati Score: I TMD: 3 Fingerbreadths Neck Extension: fair Overall Assessment: no airway concerns - ASA ASA Score: 2 - Plan Plan: GA vs SAB with sedation Anesthesia: General Inhalation Gases, Neuroaxial Peripheral Nerve Block: Saphenous-Left - Discussion Discussion: Discussed risks/options/alternatives of anesthesia and questions answered. Patient consents. Nursing pain assessment noted. Present for Discussion: spouse Attestation Statement: Prior to the delivery of any anesthetic medication, I examined the patient, developed the plan, obtained the patient's consent and discussed the risk and benefits of the procedure with the patient/guardian. - Additional Information Seen by Anesthesia: Yes
[2016-11-26] MEDS ORDERED: EPINEPHrine 0.25 MG, BUPIVACAINE 0.25% PF 30 ML, MORPHINE SULFATE 15 MG, KETOROLAC INJ ... OPSITE ONE (08:00)
[2016-11-26] MEDS ORDERED: VANCOMYCIN 1,000 MG INJECTION ONE (08:20)
[2016-11-26] MEDS ORDERED: PROPOFOL 500 MG/50 ML VIAL IV ONE (08:44)
[2016-11-26] MEDS ORDERED: MIDAZOLAM 2mg/2ml INJECTION ONE (08:44)
[2016-11-26] MEDS ORDERED: FentaNYL 100 MCG/2 ML INJECTION ONE (08:44)
[2016-11-26] MEDS ORDERED: KETAMINE 500 MG/10 ML INJECTION ONE (09:17)
[2016-11-26] MEDS ORDERED: VANCOMYCIN 1,000 MG INJECTION IAR ONE (09:18)
[2016-11-26] MEDS ORDERED: PROPOFOL 20 ML ONE (10:17)
[2016-11-26] MEDS ORDERED: ROPIVACAINE 0.5% (5mg/ml) 30ml INJ ONE (10:17)
--- NOTE | 2016-11-26 10:42 | Operative Note ---
- Procedure Date of Admission: 11/26/16 Side: left Preoperative Diagnosis: knee primary DJD Postoperative Diagnosis: Same as preoperative diagnosis. Operation: total knee arthroplasty Surgeon: Dorys Yao MD Casing Crew: Mauro Swartz Complications: None. Regional/Trunk Block: Spinal Peripheral Nerve Block: Saphenous-Left Estimated Blood Loss: See Anesthesia Record. Fluids: Please see Anesthesia Record. Description of Procedure: Mr. Mora and the left knee were identified and marked in the preoperative holding area. He was brought back to the operating suite and placed supine on the operating table. Spinal anesthetic was administered. The operative lower extremity was prepped and draped in a sterile fashion. Timeout was performed. Had a fixed varus deformity with no flexion contracture. An anterior midline incision followed by medial parapatellar arthrotomy was performed. The tourniquet was not used until cementing. Hemostasis was obtained with electrocautery. The patella was resurfaced to a size 35. A distal femoral osteotomy was then performed in 5 of valgus using intramedullary guide. The femur was sized at a 5 and rotation set using the epicondylar axis. Distal femoral cuts were performed with a 4-in-1 cutting block. A proximal tibial cut was then made perpendicular to its long axis using an extramedullary guide. At this point remaining meniscus and osteophytes were removed and joint cocktail was injected throughout soft tissue. Trial components were placed with a 9 mm spacer. This allowed for full extension and flexion and the patella tracked well. The leg was then exsanguinated and the tourniquet inflated to 250 mmHg. The tibia was then stamped at a size 5 at the proper rotation. The bone was then prepared for cementing and [place] [employer] components were cemented into place and allowed to cure in extension. The tourniquet was then let down and hemostasis obtained with electrocautery. Betadine solution was used during the curing period for 3 minutes. 1 g of vancomycin powder was placed into the joint before the capsulotomy was repaired with #1 Vicryl. I then left my account assistant close the subcutaneous tissue and skin with 2-0 Vicryl and Monocryl. Dermabond was used on the skin. The drapes were then removed and she was taken to recovery room under the care of anesthesia.
--- NOTE | 2016-11-26 11:02 | History & Physical Update ---
- History and Physical Update Date: 11/26/16 Update: I evaluated this patient and found no changes in the history and clinical exam findings. The treatment plan and recommendations are also unchanged from the previous documentation.
--- NOTE | 2016-11-26 11:11 | Anesthesia Procedure Note ---
Peripheral Nerve Blockade - Procedure Physician: Kang Yao MD Date: 11/26/16 Discussion: Discussed risks/options/alternatives of anesthesia and questions answered. Patient consents. Nursing pain assessment noted. Block Start: 11:06 Block Stop: 11:07 Blocked Employed: Adductor Canal, Single Injection Indication: Post-Operative Pain Approach: Left Side Confirmed Position: Supine Patient: Consent, Risks/Benefits Discussed, Informed IV Sedation: No (post op) Sedation: Awake Initial Vital Signs: Temperature 98.5 F 11/26/16 07:01 Temperature Source Oral 11/26/16 07:01 Pulse Rate 83 11/26/16 07:01 Respiratory Rate 18 11/26/16 07:01 Blood Pressure 143/85 H 11/26/16 07:01 Blood Pressure Mean 104 11/26/16 07:01 Blood Pressure Position Sitting 11/26/16 07:01 Pulse Oximetry 98 11/26/16 07:01 Oxygen Delivery Method 11/26/16 07:01 Post Vital Signs: Temperature 98.5 F 11/26/16 07:01 Pulse Rate 65 11/26/16 07:29 Respiratory Rate 18 11/26/16 07:01 Blood Pressure 143/85 H 11/26/16 07:01 Pulse Oximetry 98 11/26/16 07:01 Oxygen Delivery Method Room Air Prep: Chlorhexadine/ETOH, Sterile Technique Ultrasound Used?: Yes - Nerve Simulator Needle Depth: 3 Muscle Response: No - Injectate Ropivacaine (%): 0.5 Ropivacaine (mL): 15 (given in 5 ml incremental dose) Was Epi 1:200,000 Used?: No Injection: Injection made incrementally with constant monitoring and aspiration every ml
[2016-11-26] MEDS ORDERED: SALINE FLUSH 10ml SYRINGE IVF PRN (12:10)
[2016-11-26] MEDS ORDERED: CALCIUM CARBONATE Chewable 500mg TABLET PO PRN (12:24)
[2016-11-26] MEDS ORDERED: DiphenhydrAMINE 50 MG/ML INJECTION IVP PRN (12:24)
[2016-11-26] MEDS ORDERED: ASPIRIN *EC* 325 MG TABLET PO PRN (12:24)
[2016-11-26] MEDS ORDERED: LORazepam 1 MG TABLET PO PRN (12:24)
[2016-11-26] MEDS ORDERED: NAPROXEN 220 MG TABLET PO PRN (12:24)
[2016-11-26] MEDS ORDERED: DiphenhydrAMINE 25 MG CAPSULE PO PRN (12:24)
[2016-11-26] MEDS ORDERED: BENZTROPINE 1 MG TABLET PO PRN (12:24)
[2016-11-26] MEDS ORDERED: NOZIN NASAL SWAB NAS ONE (12:24)
[2016-11-26] MEDS ORDERED: ONDANSETRON 4 MG/2 ML INJECTION IVP PRN (12:24)
[2016-11-26] MEDS: NS 1,000 ML IV SCH (12:39)
--- NOTE | 2016-11-26 12:52 | XRay Report ---
Indication: postoperative image PROCEDURE: XR knee LT 2V: Encounter: Initial Comparison: None Findings: Postoperative changes of left total knee replacement are seen. There is expected postoperative subcutaneous gas. No evidence of hardware failure or acute fracture. No retained radiopaque surgical instruments or sponges. Overlying material causing artifact. Impression: New left total knee prosthesis without evidence of immediate complication. .
[2016-11-26] MEDS: NOZIN NASAL SWAB NAS SCH ×2 (15:30→21:04)
[2016-11-26] MEDS: CEFAZOLIN 2 G in NS 100 ML IV SCH (17:18)
[2016-11-26] MEDS ORDERED: ZIPRASIDONE 40 MG CAPSULE PO SCH (17:30)
--- NOTE | 2016-11-26 18:49 | Anesthesia Postoperative Note ---
- Date and Time Date: 11/26/16 Time: 18:49 - Status Patient Participated in Evaluation: Patient Participated in Person Vital Signs: Temperature 96.9 F 11/26/16 11:57 Pulse Rate 68 11/26/16 16:16 Respiratory Rate 20 11/26/16 12:51 Blood Pressure 149/84 H 11/26/16 16:16 Pulse Oximetry 97 11/26/16 16:16 Oxygen Delivery Method Room Air Oxygen Flow Rate 2 Respiratory Function: Airway Patent Cardiovascular Function: Regular Pulse Mental Status: Alert and Oriented Pain Intensity: 0 Hydration: Taking PO Fluids Complications During Recover: None Apparent - Follow-Up Instructions Instructions: Per Surgeon
[2016-11-26] MEDS: ASPIRIN *EC* 325 MG TABLET PO SCH (20:55)
[2016-11-26] MEDS: DOCUSATE SODIUM 100 MG CAPSULE PO SCH (20:56)
[2016-11-26] MEDS: ALLOPURINOL 100 MG TABLET PO SCH (20:56)
[2016-11-26] MEDS ORDERED: SENNOSIDES 8.6 MG TABLET PO SCH (22:00)
[2016-11-26] MEDS ORDERED: TERAZOSIN 5 MG CAPSULE PO SCH (22:00)
[2016-11-26] MEDS ORDERED: FINASTERIDE 5 MG TABLET PO SCH (22:00)
[2016-11-26] MEDS ORDERED: SIMVASTATIN 10 MG TABLET PO SCH (22:00)
[2016-11-27] MEDS: CEFAZOLIN 2 G in NS 100 ML IV SCH (01:04)
[2016-11-27] MEDS: NS 1,000 ML IV SCH (01:04)
[2016-11-27] MEDS: NOZIN NASAL SWAB NAS SCH ×2 (05:29→13:41)
[2016-11-27] MEDS: HYDROCODONE/APAP 5mg/325mg TABLET PO PRN ×3 (05:39→14:04)
[2016-11-27] MEDS: NAPROXEN 220 MG TABLET PO PRN ×2 (06:29→16:49)
[2016-11-27] MEDS ORDERED: OMEPRAZOLE 20 MG CAPSULE PO SCH (06:30)
[2016-11-27] MEDS ORDERED: ZIPRASIDONE 40 MG CAPSULE PO SCH (08:00)
--- NOTE | 2016-11-27 08:08 | Orthopedic Progress Note ---
Date: Subjective/Severity of Illness: Mr Mora reports his pain is a "4" this am. He did not ambulate as much as he thought he would and feels this knee is a little more painful than his previous one. The IV pump was noisy and kept him awake through the night. No reports of CP, cough or SOA. Orthopedic Objective PO Vital signs: Temperature 98 F 11/27/16 03:20 Pulse Rate 86 11/27/16 07:27 Respiratory Rate 16 11/27/16 07:27 Blood Pressure 139/86 11/27/16 07:27 Pulse Oximetry 97 11/27/16 07:27 Oxygen Delivery Method Room Air Oxygen Flow Rate 2 Height and Weight: Height 5 ft 8 in Weight 219 lb 5.759 oz Body Mass Index 31.4 - Constitutional General Appearance: Present: alert, no acute distress - Respiratory Exam Present: non-labored - Extremities Exam Extremities: Present: pulses intact. Absent: calf tenderness - Surgical Site Incision: Mepilex dressing intact, no drainage - Neurological Exam Present: no deficits - Psychiatric Exam Present: alert, normal affect - Labs Result Diagrams: 11/27/16 04:17 11/27/16 04:17 Abnormal lab results 11/27/16 Range/Units 04:17 RBC 3.47 L (4.50-5.90) M/MM3 Hgb 9.9 L (13.5-17.5) GM/DL Hct 30.6 L (41-53) % H & H 11/27/16 Range/Units 04:17 Hgb 9.9 L (13.5-17.5) GM/DL Hct 30.6 L (41-53) % Orthopedic Assessment and Plan (1) Arthritis of knee, left Status: Acute Assessment and Plan: Current anti-coagulation protocol for VTE prophylaxis. SCD's. PT/OT services to improve independent function. Discharge Planning per Case Management. Hospital Course Summary Disclaimer: The visit summary below is not to be considered part of the above Progress Note.
[2016-11-27] MEDS: ALLOPURINOL 100 MG TABLET PO SCH (08:53)
[2016-11-27] MEDS: ASPIRIN *EC* 325 MG TABLET PO SCH (08:53)
[2016-11-27] MEDS: DOCUSATE SODIUM 100 MG CAPSULE PO SCH (08:53)
[2016-11-27] MEDS ORDERED: AMLODIPINE 10 MG TABLET PO SCH (09:00)
[2016-11-27] MEDS ORDERED: SERTRALINE 100 MG TABLET PO SCH (09:00)
[2016-11-27] MEDS ORDERED: FOLIC ACID 1 MG TABLET PO SCH (09:00)
[2016-11-27] MEDS ORDERED: LISINOPRIL 10 MG TABLET PO SCH (09:00)
[2016-11-27] MEDS ORDERED: POLYETHYL GLYCOL 3350 17gm PACKET PO SCH (09:00)
[2016-11-27] MEDS ORDERED: SENNOSIDES 8.6 MG TABLET PO PRN (10:59)
[2016-11-27 11:35] VITALS: RESP 18
--- NOTE | 2016-11-27 13:43 | Discharge Summary ---
Orthopedic Discharge Info Date of admission: 11/26/16 06:42 Primary care physician: Kaz Armas DO Attending Physician: Kang Yao MD Consults: 11/26/16 05:38 Consult to Anesthesiology [CONS] Routine Consulting Provider: LEONOR Cole Reason For Exam: Preoperative Assessment 11/26/16 12:24 Case Management Consult [CONS] Routine Reason For Exam: Discharge Planning DME-Walker [CONS] Routine Height: 5 ft 8 in Weight: 206 lb 12.697 oz Comment: change dressing in 2 weeks Total Joint Outpatient Therapy [CONS] Routine Comment: change dressing in 2 weeks - Discharge Diagnosis (1) Arthritis of knee, left Status: Acute - Procedures Procedures: Procedures Division of Right Ankle Tendon, Percutaneous Approach (03/01/15) Gait Training/Functional Ambulation Treatment using Assistive, Adaptive, Supportive or Protective Equipment (03/03/15) Home Management Treatment (03/03/15) Replacement of Right Ankle Joint with Synthetic Substitute, Open Approach (03/01) Replacement of Right Knee Joint with Synthetic Substitute, Cemented, Open Approach (08/08/16) Therapeutic Exercise Treatment of Musculoskeletal System - Lower Back / Lower Extremity (03/03/15) - Laboratory Result Diagrams: 11/27/16 04:17 11/27/16 04:17 Laboratory: Abnormal lab results 11/27/16 Range/Units 04:17 RBC 3.47 L (4.50-5.90) M/MM3 Hgb 9.9 L (13.5-17.5) GM/DL Hct 30.6 L (41-53) % H & H 11/27/16 Range/Units 04:17 Hgb 9.9 L (13.5-17.5) GM/DL Hct 30.6 L (41-53) % Orthopedic Discharge HPI - HPI Comments This patient was admitted for elective surgical tx of end stage degenerative joint disease that failed to respond to conservative treatment. Further details of this is found in the admission H&P. Orthopedic Hospital Course Hospital course: 11/27/16 13:42 After appropriate preoperative clearance and signing of operative consent, the patient was given IV antibiotics, according to orthopedic protocol. The patient was taken to the operating room and underwent elective joint arthroplasty. Following surgery, antibiotics were discontinued less than 24 hours according to joint protocol. Appropriate anticoagulants were initiated and SCDs added for DVT prevention. The dressing was clean, dry, and intact. Pain control was obtained via multimodal approach. Bowel motivation addressed with scheduled and PRN medications. Early mobilization was initiated through PT services. Discharge arrangements made by a collaborative effort between the patient and Case Management. Follow-up is scheduled in 2-3 weeks. Discharge instructions given by orthopedic providers and nursing staff at discharge. Discharge condition was good. Discharge Plan - Med Rec/Dispo Referrals/Follow Up: Kang Yao MD [Physician] - 12/18/16 8:30 am [place] Instructions: [facility] [place] Maximilian General Instructions, [facility] [place] Ortho Postop Instructions Additional Instructions: [facility] ON 11/29/2016 AT 10:15AM WITH [facility]. PLEASE COMPLETE THE PAPERWORK IN THE [facility] [place] FOLDER PRIOR TO THE APPOINTMENT. PHONE [phone] Prescriptions: No Action Lisinopril 5 mg PO DAILY #0 tab Allopurinol 1 tab PO BID #0 tab Finasteride 1 tab PO HS #0 tab Docusate Sodium [Colace] 1 cap PO BID #0 cap Multivitamin [Multi-Day Vitamins] 1 tab PO DAILY #0 tab TUMS 1,000 mg PO QID PRN #0 PRN Reason: ACID REFLUX Cyanocobalamin (Vitamin B-12) [Vitamin B-12] 1 tab PO DAILY #0 tab Aspirin [Aspirin EC] 325 mg PO BID PRN PRN Reason: Pain Sertraline HCl [Zoloft] 1 tab PO DAILY #0 Amlodipine Besylate 10 mg PO DAILY #0 tab Omeprazole 20 mg PO ACB #0 cap Terazosin HCl 15 mg PO HS #0 cap Ziprasidone HCl 40 mg PO BREAKFAST #0 cap Ziprasidone HCl 80 mg PO SUPPER #0 cap Naproxen [Aleve] 2 tab PO BIDWM PRN #0 tab PRN Reason: PAIN Benztropine Mesylate 1 tab PO BID PRN #0 tab PRN Reason: EXTRAPYRAMIDAL SYMPTOMS Folic Acid 1 tab PO DAILY #0 tab Potassium Chloride 10 meq PO WB #0 cap Simvastatin 10 mg PO HS #0 tab Thiamine HCl [Vitamin B-1] 1 tab PO DAILY #0
--- NOTE | 2016-11-27 13:46 | Discharge Instructions ---
Discharge Plan - Med Rec/Dispo Referrals/Follow Up: Kang Yao MD [Physician] - 12/18/16 8:30 am Mandy Instructions: [facility] [place] Maximilian General Instructions, [facility] [place] Ortho Postop Instructions Additional Instructions: [facility] ON 11/29/2016 AT 10:15AM WITH FELY FOR [facility]YSICAL THERAPY [facility]. PLEASE COMPLETE THE PAPERWORK IN THE [facility] [place] FOLDER PRIOR TO THE APPOINTMENT. PHONE [phone] Prescriptions: New Aspirin *EC* [Ecotrin] 325 mg PO BID #84 tablet Hydrocodone/APAP 5/325 [[place] 5/325] 1 - 2 tab PO Q4H PRN #60 tablet PRN Reason: Pain PEG 3350 17gm PACKET [Miralax] 17 gm PO DAILY packet Continue Lisinopril 5 mg PO DAILY #0 tab Allopurinol 1 tab PO BID #0 tab Finasteride 1 tab PO HS #0 tab Docusate Sodium [Colace] 1 cap PO BID #0 cap Multivitamin [Multi-Day Vitamins] 1 tab PO DAILY #0 tab TUMS 1,000 mg PO QID PRN #0 PRN Reason: ACID REFLUX Cyanocobalamin (Vitamin B-12) [Vitamin B-12] 1 tab PO DAILY #0 tab Aspirin [Aspirin EC] 325 mg PO BID PRN PRN Reason: Pain Sertraline HCl [Zoloft] 1 tab PO DAILY #0 Amlodipine Besylate 10 mg PO DAILY #0 tab Omeprazole 20 mg PO ACB #0 cap Terazosin HCl 15 mg PO HS #0 cap Ziprasidone HCl 40 mg PO BREAKFAST #0 cap Ziprasidone HCl 80 mg PO SUPPER #0 cap Naproxen [Aleve] 2 tab PO BIDWM PRN #0 tab PRN Reason: PAIN Benztropine Mesylate 1 tab PO BID PRN #0 tab PRN Reason: EXTRAPYRAMIDAL SYMPTOMS Folic Acid 1 tab PO DAILY #0 tab Potassium Chloride 10 meq PO WB #0 cap Simvastatin 10 mg PO HS #0 tab Thiamine HCl [Vitamin B-1] 1 tab PO DAILY #0 - Disposition 01 Discharged Home, Self-Care
[2016-11-27 15:49] VITALS: BP 160/89; PULSE 90; TEMP 98; O2SAT 98
[2016-11-28] MEDS ORDERED: BISACODYL 10 MG SUPPOSITORY RECTALLY SCH (20:00)
== END 2016-11-27 17:40 | disposition home or self-care (01) | DRG 470 ==
LOC: SRG 06:42
PROVIDERS: ADMIT Orthopaedic Surgery; ATTEND Orthopaedic Surgery